=== PATIENT | female | born 1990 | race Caucasian/White ===

== ENCOUNTER 2017-01-24 09:46 | Outpatient (CLI) | payer BC, OTHER ==
--- NOTE | 2017-01-24 10:38 | DIAGNOSTIC IMAGING REPORT ---
PROCEDURE: US OB 1ST TRIMESTER W/TRANSVAG INDICATION: NO HEART TONES TECHNIQUE: Jefferson scale, color, and spectral Doppler transabdominal and endovaginal sonographic images of the first trimester gravid uterus were obtained. COMPARISON: None. FINDINGS: TRANSABDOMINAL SCANS: There is an intrauterine gestational sac with a pole. Closed cervix. TRANSVAGINAL SCANS: Yolk sac present. Bay-rump length measures 1.4 cm, 7 weeks 5 days. No cardiac activity detected. There is a subchorionic hemorrhage present. IMPRESSION: 1. demise 2. Results discussed with Dr. Conde
--- NOTE | 2017-01-24 10:38 | DIAGNOSTIC IMAGING REPORT ---
PROCEDURE: US OB 1ST TRIMESTER W/TRANSVAG INDICATION: NO HEART TONES TECHNIQUE: Jefferson scale, color, and spectral Doppler transabdominal and endovaginal sonographic images of the first trimester gravid uterus were obtained. COMPARISON: None. FINDINGS: TRANSABDOMINAL SCANS: There is an intrauterine gestational sac with a pole. Closed cervix. TRANSVAGINAL SCANS: Yolk sac present. [place]-rump length measures 1.4 cm, 7 weeks 5 days. No cardiac activity detected. There is a subchorionic hemorrhage present. IMPRESSION: 1. demise 2. Results discussed with Dr. Conde
== END 2017-01-24 23:00 ==
LOC: US SRH 09:46
DX: O02.1 Missed abortion (principal); Z3A.01 Less than 8 weeks gestation of pregnancy

== ENCOUNTER 2017-02-04 18:07 | Emergency (ER) | payer BC, OTHER ==
--- NOTE | 2017-02-04 19:54 | ED CLINICAL REPORT ---
Clinical Report - Physicians/Mid Levels [facility] [address] [place] [address] 02/04/2017 18:08 [id number] Time Seen: 18:13; upon arrival, initial patient contact, initial documentation, patient care assumed. Arrived- By private vehicle. Historian- patient. HISTORY OF PRESENT ILLNESS Chief Complaint: VAGINAL BLEEDING. This started today and still present. The symptoms are described as moderate. Modifying factors. Not worsened by anything. Not relieved by anything. The patient has had moderate, constant, crampy pelvic pain, described as "pain", with vaginal bleeding. She has had abnormal bleeding described as heavier than normal period and passing clots. She is not or postmenopausal. No control. No vaginal pain, low back pain, flank pain, vaginal discharge or pain with urination. No urinary frequency, urgency of urination or hematuria. Sexually active. Denies current . Not receiving care. Similar symptoms previously: None. Recent medical care: The patient was seen recently in a clinic. ( 7wks , went to dr on 01/24 for vag bleeding, dx with miscarriage, bleeding continued, so on 02/01 d&c was done, bleeding stopped after procedure, no f/u was told none was needed unless there were problems, bleeding started back up today). REVIEW OF SYSTEMS No vomiting, diarrhea, fever, difficulty breathing or chest pain. All systems otherwise negative, except as recorded above. PAST HISTORY See nurses notes. ( ADDITIONAL SURGERIES: Dilatation & Curettage. Endoscopy . [place] teeth. --18:26 Micaela Chen R.N.). SOCIAL HISTORY Never smoker. History of occasional drug use: marijuana. No alcohol use. No recent travel. Is a local resident. She lives with spouse. FAMILY HISTORY Negative. ADDITIONAL NOTES The nursing notes have been reviewed with agreement regarding the chief complaint, HPI, ROS, PMH and patient medications and allergies. PHYSICAL EXAM Vital Signs: 02/04/2017 18:17 BP: 115/67. HR: 84. RR: 20. O2 saturation: 99%. Temp: 98.1 F. Pain level now: 5/10. Have been reviewed as normal and appear to be correct. Appearance: Alert. Oriented X3. No acute distress. HEENT: Normal external inspection. ENT: Pharynx normal. Neck: Neck supple. CVS: Heart sounds normal. Respiratory: No respiratory distress. Breath sounds normal. Chest nontender. Abdomen: Soft and nontender. Bowel sounds normal. No organomegaly. No mass. Back: Normal external inspection. : External inspection abnormal. Speculum exam abnormal. Moderate vaginal bleeding, consisting of dark blood with clots, via the cervical os. No vaginal discharge. Cervical os closed. No tissue present. No cervicitis. No herpes-like lesions. Bimanual exam normal. Skin: Skin warm and dry. Normal skin color. No rash. Normal skin turgor. Extremities: Extremities nontender. No lower extremity edema. Neuro: Oriented X 3. Mood/affect normal. No motor deficit. No sensory deficit. LABS, X-RAYS, AND EKG Pelvic Sonogram: . verbal report given by tech Byron large uterine clot, no active bleeding. Study type: bedside. The study was discussed with the radiologist. Interpretation time: 19:25. Laboratory Tests: CBC w Diff: (ELIS: 02/04/2017 18:30) ( MsgRcvd 02/04/2017 18:53) Final results Test Result Flag Units (Reference) WHITE BLOOD COUNT 6.9 K/uL (4.5-11.5) RED BLOOD COUNT 4.33 M/uL (4.00-5.20) HEMOGLOBIN 12.7 gm/dL (12.0-16.0) HEMATOCRIT 36.8 % (36.0-46.0) MEAN CELL VOLUME 85 fL (80-100) MEAN CORPUSCULAR HGB 29 pg (26-34) MEAN CORPUSCULAR HGB CONC 34 g/dL (31-37) RED CELL DISTRIBUTION WIDTH 12.4 % (11.6-14.8) PLATELET COUNT 270 K/uL (150-400) NEUTROPHIL % 61.2 % (50-75) LYMPH % 26.1 % (25-40) MONO % 5.0 % (3-14) EOSINOPHIL % 7.1 H % (0-4) BASOPHIL % 0.6 % (0-2) CMP: (ELIS: 02/04/2017 18:30) ( MsgRcvd 02/04/2017 19:13) Final results Test Result Flag Units (Reference) GLUCOSE 98 mg/dL (70-110) BUN 13 mg/dL (7-18) CREATININE 0.7 mg/dL (0.6-1.3) Estimated GFR >60 mL/min Estimated GFR- >60 mL/min Note: Persistent reduction over 3 months in eGFR<60 mL/min/1.73 m2 defines CKD. Patients with eGFR values>=60 mL/min/1.73 m2 may also have CKD if evidence ofpersistent proteinuria. Additional information may be foundat [email or web address].org. SODIUM 143 mmol/L (136-145) POTASSIUM 3.6 mmol/L (3.5-5.1) CHLORIDE 103 mmol/L (98-107) CARBON DIOXIDE 28 mmol/L (21-32) CALCIUM 9.4 mg/dL (8.5-10.1) TOTAL PROTEIN 7.8 g/dL (6.4-8.2) ALBUMIN 4.1 g/dL (3.3-5.0) BILIRUBIN, TOTAL 0.6 mg/dL (0.0-1.0) ALKALINE PHOSPHATASE 69 U/L (46-116) AST (SGOT) 26 U/L (15-37) ALT (SGPT) 28 U/L (12-78) . PROGRESS AND PROCEDURES Patient and spouse counseled in person regarding the patient's stable condition, test results and diagnosis. 1930. Differential Diagnosis: I considered vaginitis, vaginal polyps, vaginal lesion, vaginal cancer, vulvar infection, ovarian cysts, polycystic disease of the ovaries, pelvic inflammatory disease, endometriosis, uterine fibroids, intrauterine , incomplete , threatened , retained products of , endometritis and trauma as a possible cause of vaginal bleeding in this patient. This is a partial list of diagnoses considered. Above considerations are based on history, physical exam, laboratory data and other information. Differential diagnosis was discussed with patient and patient's spouse. Disposition: Discharged home in good and improved condition (19:37). Condition: good and stable. CLINICAL IMPRESSION Moderate dysfunctional uterine bleeding. INSTRUCTIONS Do not work today, for two days. Warnings: GENERAL WARNINGS: Return or contact your physician immediately if your condition worsens or changes unexpectedly, if not improving as expected, or if other problems arise. Specifically return if problem worsens. Prescription Medications: Ultram 50 mg tablets: take 1-2 orally every 6 hours as needed for pain. Dispense twenty (20). No refills. Substitution is permissible. Follow-up: Follow up with a manager policy tomorrow even if well. Call for an appointment. Summary of care provided to patient and family. Understanding of the discharge instructions verbalized by patient. (Electronically signed by Tosiha Witt A.R.N.P. 02/04/2017 21:14)
--- NOTE | 2017-02-04 19:54 | ED NURSING NOTES ---
Clinical Report - Nurses [facility] [address], [place] [address] 02/04/2017 18:08 Patient: ASHLEY GRANDE TRIAGE Triage time 18:18. Acuity: LEVEL 3. Chief Complaint: VAGINAL BLEED and (Post miscarriag/D/C last friday, spotting till today, increased toady). Alert. No acute distress. --18:27 Micaela Chen R.N. 18:17 02/04/17. BP: 115/67. HR: 84. RR: 20. O2 saturation: 99%. Temp: 98.1 F. Pain level now: 04/02. --18:27 Micaela Chen R.N. 18:17 02/04/17. BP: 115/67. HR: 84. RR: 20. O2 saturation: 99%. Temp: 98.1 F. Pain level now: 04/02. --18:28 Micaela Chen R.N. Weight: 59.8 kg. Height/Length: 61 inches. BMI: 24.9. --18:27 Micaela Chen R.N. Medications Oxycodone 5 mg 1-2 q 4-6 hrs prn . --18:23 Micaela Chen R.N. Naproxyn 500mg q 4-6 hrs prn . --18:23 Micaela Chen R.N. Medication/allergy information source: the patient. --18:27 Micaela Chen R.N. Allergies No Known Drug Allergy. --18:23 Micaela Chen R.N. History Arrived by private vehicle. Historian: patient and family. Accompanied by family. No primary care physician. This started today. She has had abdominal pain. The pain is described as located in the lower abdomen. She has had spotting (Large clots). The spotting has required use of about 4 pads per day. Last oral intake by patient was today 5 hours ago. 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 PAST MEDICAL HX: Immunizations: up-to-date. 1. Para 0. Abortions 1. SOCIAL HX: Never smoker. History of drug use: marijuana. (2 months ago). No alcohol use. FALL RISK ASSESSMENT: Fall risk assessment completed. No fall risk identified. NUTRITIONAL RISK ASSESSMENT: The nutritional risk assessment revealed no deficiencies. FUNCTIONAL ASSESSMENT: Functional assessment: no impairments noted. LEARNING NEEDS ASSESSMENT: The learning needs assessment revealed no barriers. SKIN INTEGRITY ASSESSMENT: Skin integrity risk assessment completed. No skin integrity risk identified. --18:27 Micaela Chen R.N. ADDITIONAL SURGERIES: Dilatation & Curettage. Endoscopy . [place] teeth. --18:26 Micaela Chen R.N. Interventions ID band on patient. To room. --18:27 Micaela Chen R.N. PHYSICAL ASSESSMENT Ambulatory to room. Patient gowned. GENERAL / NEURO / PSYCH: Alert. Oriented X 4. Appears in pain and anxious. HEENT: Mucous membranes are pink. RESPIRATORY: Respirations not labored. CVS: Capillary refill less than 2 seconds. GI / : Abdominal tenderness in the lower abdomen. Moderate vaginal bleeding present, consisting of dark blood with clots (4 pads / day). SKIN: Skin is warm and dry. --18:29 Micaela Chen R.N. NURSING PROGRESS NOTES Patient gowned. Head of bed elevated. Two patient identifiers checked. Call light placed in reach. Side rails up x 2. Bed placed in lowest position. Brakes of bed on. Patient ready for evaluation. --18:29 Micaela Chen R.N. 18:28 02/04/2017 Site #1 started via IV in the right antecubital space with an 20g angiocath, with aseptic technique and good blood return; one attempt. Blood drawn: rainbow set. Labeled in the presence of the patient and sent to the lab. Saline lock flushed with 10 mL saline. --18:43 Micaela Chen R.N. 19:03 02/04/17. BP: 106/66. HR: 74. RR: 16. O2 saturation: 99%. Pain level now: 5/10. --19:04 Micaela Chen R.N. 19:04 02/04/17. ( US at the bedside.). --19:04 Micaela Chen R.N. 18:40. PELVIC EXAM: Pelvic exam performed by POLE SHAVER. Preparation: pelvic tray; patient placed in lithotomy position. Procedure: speculum exam. Status post-procedure: she was stable. Total time of assist / procedure: 15 minutes. --19:05 Micaela Chen R.N. EKG time: (1928). EKG was performed by a tech and shown to the ED physician. --19:47 Suma Arizmendi, AJ Tech1 19:54 02/04/2017 Toradol IVP 30 mg given over 1 minute(s) via site #1. Allergies verified and confirmed 5 rights. IV patency established. IV site checked: no pain, redness, or swelling. IV flushed thoroughly pre- and post-medication administration. IVP given by RN. --19:54 Micaela Chen R.N. 20:01 02/04/2017 Site #1 removed upon discharge. Catheter intact. Bandaid applied. --20:13 Micaela Chen R.N. DISPOSITION / DISCHARGE 20:01. Condition at departure: improved. No learning barriers present. Discharge instructions provided and reviewed with the patient and spouse. Reviewed medication(s) side effects, precautions, dosing and course information. Prescription(s) given to the patient. Reviewed referral to a roof technician. Patient and spouse verbalized understanding. Written instructions provided in Colombian. The patient was discharged home and accompanied by spouse. She left the Emergency Department ambulatory and via private vehicle. Spouse driving. Medication list reviewed and validated. --20:12 Micaela Chen R.N. 20:00 02/04/17. BP: 110/78. HR: 74. RR: 18. O2 saturation: 99% on room air. Temp: deferred. Pain level now: 01/03. 19:02/04/17. BP: 106/66. HR: 74. RR: 16. O2 saturation: 99%. Pain level now: 04/02. 18:17 02/04/17. BP: 115/67. HR: 84. RR: 20. O2 saturation: 99%. Temp: 98.1 F. Pain level now: 04/02. --20:12 Micaela Chen R.N. Locked/Released at 02/04/2017 20:14 by Micaela Chen R.N.
--- NOTE | 2017-02-04 19:54 | ED ORDER SUMMARY ---
..... Patient: ASHLEY GRANDE OrderSheet [facility] VisitID: [id number] [address] [place] [address] 27y, F Registration Date/Time: 02/04/2017 ORDER SHEET Weight: 59.8 kg Allergies: No Known Drug Allergy GENERAL ORDERS: CBC w Diff Urgent (18:42 02/04/2017 SRoberts R.N. per protocol) (18:43 SRoberts R.N.) CMP Urgent (18:42 02/04/2017 SRoberts R.N. per protocol) (18:43 SRoberts R.N.) US Pelvic Complete w Transvag Urgent (18:53 02/04/2017 HBivens A.R.N.P.) (Ack 18:54 LNations ER Tech1) (19:47 MCampbell) UA-Culture if indicated Urgent (19:14 02/04/2017 HBivens A.R.N.P.) (Ack 19:22 SRedmond) MEDICATION ORDERS: IV FLUIDS: IV Saline Lock (18:42 02/04/2017 SRoberts R.N. per protocol) (18:43 SRoberts R.N.) Toradol IV 30 mg (NOW) (19:37 02/04/2017 HBivens A.R.N.P.) (Ack 19:48 SRoberts R.N.) (19:54 SRoberts R.N.) ORDER SHEET NOTES: [Electronically signed by Micaela Chen R.N. (20:02/04/2017)] [Electronically signed by Toshia Witt A.R.N.P. (21:14 02/04/2017)] [Electronically locked/signed by Micaela Chen R.N. (20:14 02/04/2017)]
--- NOTE | 2017-02-04 19:54 | ED ORDER SUMMARY ---
..... Patient: AHSLEY GRANDE OrderSheet [facility] VisitID: [id number] [address] [place] [address] 27y, F Registration Date/Time: 02/04/2017 ORDER SHEET Weight: 59.8 kg Allergies: No Known Drug Allergy GENERAL ORDERS: CBC w Diff Urgent (18:42 02/04/2017 SRoberts R.N. per protocol) (18:43 SRoberts R.N.) CMP Urgent (18:42 02/04/2017 SRoberts R.N. per protocol) (18:43 SRoberts R.N.) US Pelvic Complete w Transvag Urgent (18:53 02/04/2017 HBivens A.R.N.P.) (Ack 18:54 LNations ER Tech1) (19:47 MCampbell) UA-Culture if indicated Urgent (19:14 02/04/2017 HBivens A.R.N.P.) (Ack 19:22 SRedmond) MEDICATION ORDERS: IV FLUIDS: IV Saline Lock (18:42 02/04/2017 SRoberts R.N. per protocol) (18:43 SRoberts R.N.) Toradol IV 30 mg (NOW) (19:37 02/04/2017 HBivens A.R.N.P.) (Ack 19:48 SRoberts R.N.) (19:54 SRoberts R.N.) ORDER SHEET NOTES: [Electronically signed by Micaela Chen R.N. (20:02/04/2017)] [Electronically signed by Toshia Witt A.R.N.P. (21:14 02/04/2017)] [Electronically locked/signed by Micaela Chen R.N. (20:14 02/04/2017)]
--- NOTE | 2017-02-04 19:54 | ED NURSING NOTES ---
Clinical Report - Nurses [facility] [address], [place] [address] 02/04/2017 18:08 Patient: ASHLEY GRANDE TRIAGE Triage time 18:18. Acuity: LEVEL 3. Chief Complaint: VAGINAL BLEED and (Post miscarriag/D/C last friday, spotting till today, increased toady). Alert. No acute distress. --18:27 Micaela Chen R.N. 18:17 02/04/17. BP: 115/67. HR: 84. RR: 20. O2 saturation: 99%. Temp: 98.1 F. Pain level now: 04/02. --18:27 Micaela Chen R.N. 18:17 02/04/17. BP: 115/67. HR: 84. RR: 20. O2 saturation: 99%. Temp: 98.1 F. Pain level now: 04/02. --18:28 Micaela Chen R.N. Weight: 59.8 kg. Height/Length: 61 inches. BMI: 24.9. --18:27 Micaela Chen R.N. Medications Oxycodone 5 mg 1-2 q 4-6 hrs prn . --18:23 Micaela Chen R.N. Naproxyn 500mg q 4-6 hrs prn . --18:23 Micaela Chen R.N. Medication/allergy information source: the patient. --18:27 Micaela Chen R.N. Allergies No Known Drug Allergy. --18:23 Micaela Chen R.N. History Arrived by private vehicle. Historian: patient and family. Accompanied by family. No primary care physician. This started today. She has had abdominal pain. The pain is described as located in the lower abdomen. She has had spotting (Large clots). The spotting has required use of about 4 pads per day. Last oral intake by patient was today 5 hours ago. 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 PAST MEDICAL HX: Immunizations: up-to-date. 1. Para 0. Abortions 1. SOCIAL HX: Never smoker. History of drug use: marijuana. (2 months ago). No alcohol use. FALL RISK ASSESSMENT: Fall risk assessment completed. No fall risk identified. NUTRITIONAL RISK ASSESSMENT: The nutritional risk assessment revealed no deficiencies. FUNCTIONAL ASSESSMENT: Functional assessment: no impairments noted. LEARNING NEEDS ASSESSMENT: The learning needs assessment revealed no barriers. SKIN INTEGRITY ASSESSMENT: Skin integrity risk assessment completed. No skin integrity risk identified. --18:27 Micaela Chen R.N. ADDITIONAL SURGERIES: Dilatation & Curettage. Endoscopy . [place] teeth. --18:26 Micaela Chen R.N. Interventions ID band on patient. To room. --18:27 Micaela Chen R.N. PHYSICAL ASSESSMENT Ambulatory to room. Patient gowned. GENERAL / NEURO / PSYCH: Alert. Oriented X 4. Appears in pain and anxious. HEENT: Mucous membranes are pink. RESPIRATORY: Respirations not labored. CVS: Capillary refill less than 2 seconds. GI / : Abdominal tenderness in the lower abdomen. Moderate vaginal bleeding present, consisting of dark blood with clots (4 pads / day). SKIN: Skin is warm and dry. --18:29 Micaela Chen R.N. NURSING PROGRESS NOTES Patient gowned. Head of bed elevated. Two patient identifiers checked. Call light placed in reach. Side rails up x 2. Bed placed in lowest position. Brakes of bed on. Patient ready for evaluation. --18:29 Micaela Chen R.N. 18:28 02/04/2017 Site #1 started via IV in the right antecubital space with an 20g angiocath, with aseptic technique and good blood return; one attempt. Blood drawn: rainbow set. Labeled in the presence of the patient and sent to the lab. Saline lock flushed with 10 mL saline. --18:43 Micaela Chen R.N. 19:03 02/04/17. BP: 106/66. HR: 74. RR: 16. O2 saturation: 99%. Pain level now: 5/10. --19:04 Micaela Chen R.N. 19:04 02/04/17. ( US at the bedside.). --19:04 Micaela Chen R.N. 18:40. PELVIC EXAM: Pelvic exam performed by PRODUCTION EXPEDITER. Preparation: pelvic tray; patient placed in lithotomy position. Procedure: speculum exam. Status post-procedure: she was stable. Total time of assist / procedure: 15 minutes. --19:05 Micaela Chen R.N. EKG time: (1928). EKG was performed by a tech and shown to the ED physician. --19:47 Suma Arizmendi, AJ Tech1 19:54 02/04/2017 Toradol IVP 30 mg given over 1 minute(s) via site #1. Allergies verified and confirmed 5 rights. IV patency established. IV site checked: no pain, redness, or swelling. IV flushed thoroughly pre- and post-medication administration. IVP given by RN. --19:54 Micaela Chen R.N. 20:01 02/04/2017 Site #1 removed upon discharge. Catheter intact. Bandaid applied. --20:13 Micaela Chen R.N. DISPOSITION / DISCHARGE 20:01. Condition at departure: improved. No learning barriers present. Discharge instructions provided and reviewed with the patient and spouse. Reviewed medication(s) side effects, precautions, dosing and course information. Prescription(s) given to the patient. Reviewed referral to a patient accounts manager. Patient and spouse verbalized understanding. Written instructions provided in Panamanian. The patient was discharged home and accompanied by spouse. She left the Emergency Department ambulatory and via private vehicle. Spouse driving. Medication list reviewed and validated. --20:12 Micaela Chen R.N. 20:00 02/04/17. BP: 110/78. HR: 74. RR: 18. O2 saturation: 99% on room air. Temp: deferred. Pain level now: 01/03. 19:02/04/17. BP: 106/66. HR: 74. RR: 16. O2 saturation: 99%. Pain level now: 04/02. 18:17 02/04/17. BP: 115/67. HR: 84. RR: 20. O2 saturation: 99%. Temp: 98.1 F. Pain level now: 04/02. --20:12 Micaela Chen R.N. Locked/Released at 02/04/2017 20:14 by Micaela Chen R.N.
--- NOTE | 2017-02-04 20:04 | DIAGNOSTIC IMAGING REPORT ---
PROCEDURE: US COMPLETE PELVIC W/TRANSVAG TECHNIQUE: Transabdominal and endovaginal cali scale and color Doppler sonographic images of the female pelvis were obtained. (Aircraft Motor Mechanic D RT). COMPARISON: Comparison is made to obstetric ultrasound 01/24/2017. FINDINGS: TRANSABDOMINAL SCANS: Uterus is mildly enlarged (8.3 x 7.3 x 4.6 cm) with a large amount of hemorrhagic material in the endometrial canal. TRANSVAGINAL SCANS: Marked increase endometrial thickening with heterogeneous proteinaceous material in the endometrial canal (maximum thickness 4 cm). Ovaries are not visualized. IMPRESSION: 1. Marked endometrial thickening with complex proteinaceous material (e.g., hemorrhage) within the endometrial canal. 2. Findings discussed with AUSTIN Pickering.
--- NOTE | 2017-02-04 20:04 | DIAGNOSTIC IMAGING REPORT ---
PROCEDURE: US COMPLETE PELVIC W/TRANSVAG TECHNIQUE: Transabdominal and endovaginal cali scale and color Doppler sonographic images of the female pelvis were obtained. (Lens Examiner D RT). COMPARISON: Comparison is made to obstetric ultrasound 01/24/2017. FINDINGS: TRANSABDOMINAL SCANS: Uterus is mildly enlarged (8.3 x 7.3 x 4.6 cm) with a large amount of hemorrhagic material in the endometrial canal. TRANSVAGINAL SCANS: Marked increase endometrial thickening with heterogeneous proteinaceous material in the endometrial canal (maximum thickness 4 cm). Ovaries are not visualized. IMPRESSION: 1. Marked endometrial thickening with complex proteinaceous material (e.g., hemorrhage) within the endometrial canal. 2. Findings discussed with AUSTIN Pickering.
--- NOTE | 2017-02-04 21:14 | ED DISCHARGE INSTRUCTIONS ---
Patient: ASHLEY GRANDE General Instructions [facility] VisitID: [id number] [place] [address] 27y, F Registration Date/Time: 02/04/2017 Moderate dysfunctional uterine bleeding. INSTRUCTIONS Do not work today, for two days. Warnings: GENERAL WARNINGS: Return or contact your physician immediately if your condition worsens or changes unexpectedly, if not improving as expected, or if other problems arise. Specifically return if problem worsens. Prescription Medications: Ultram 50 mg tablets: take 1-2 orally every 6 hours as needed for pain. Dispense twenty (20). No refills. Substitution is permissible. Follow-up: Follow up with a workers compensation claims specialist tomorrow even if well. Call for an appointment. Summary of care provided to patient and family. Understanding of the discharge instructions verbalized by patient. ADDITIONAL INFORMATION Irregular Vaginal Bleeding This is a condition in which bleeding occurs at unexpected times of the month. The bleeding may be heavier or filling winder than usual. Heavy bleeding may lead to anemia. If severe enough, anemia may cause you to look pale and feel weak or fatigued. You might have shortness of breath even with little exertion. The female hormones produced in your body every month may be out of balance. This imbalance leads to bleeding. Causes could include an ovarian cyst, emotional stress, pelvic infection. Failure to ovulate during your last cycle may also cause this problem. Home Care: If bleeding is heavy, rest and avoid heavy exertion. You may use acetaminophen (Tylenol) or ibuprofen (Motrin, Advil) to control pain, unless another pain medicine was prescribed. [NOTE: If you have chronic liver or kidney disease or ever had a stomach ulcer or GI bleeding, talk with your doctor before using these medicines.] Iron supplements may be prescribed for anemia. It takes about 4-6 weeks for the iron to correct the anemia. Take the medicine as directed. See your doctor for a repeat blood test after you finish the iron treatment. If hormones were prescribed to control your bleeding, take them exactly as directed. If you were prescribed a medicine called Provera (medroxyprogesterone), the bleeding should stop while you are taking it. Another period will start a few days after you finish the medicine. Follow Up with your doctor, or as advised, within the next 1-2 days if heavy bleeding continues. Otherwise, follow up within the next 1-2 weeks. Get Prompt Medical Attention if any of the following occur: Bleeding becomes heavy (soaking one pad an hour for three hours) Fever of 100.4F (38C) or higher, or as directed by your healthcare provider Increase in abdominal pain Weakness, dizziness or fainting Tramadol Hydrochloride Oral tablet What is this medicine? TRAMADOL (TRA ma dole) is a pain reliever. It is used to treat moderate to severe pain in adults. How should I use this medicine? Take this medicine by mouth with a full glass of water. Follow the directions on the prescription label. If the medicine upsets your stomach, take it with food or milk. Do not take more medicine than you are told to take. Talk to your sprinkler repair technician regarding the use of this medicine in children. Special care may be needed. What side effects may I notice from receiving this medicine? Side effects that you should report to your doctor or health caretaker as soon as possible: allergic reactions like skin rash, itching or hives, swelling of the face, lips, or tongue breathing difficulties, wheezing confusion itching light headedness or fainting spells redness, blistering, peeling or loosening of the skin, including inside the mouth seizures Side effects that usually do not require medical attention (report to your doctor or health caretaker if they continue or are bothersome): constipation dizziness drowsiness headache nausea, vomiting What may interact with this medicine? Do not take this medicine with any of the following medications: MAOIs like Carbex, Eldepryl, Marplan, Nardil, and Parnate This medicine may also interact with the following medications: alcohol or medicines that contain alcohol antihistamines benzodiazepines bupropion carbamazepine or oxcarbazepine clozapine cyclobenzaprine digoxin furazolidone linezolid medicines for depression, anxiety, or psychotic disturbances medicines for migraine headache like almotriptan, eletriptan, frovatriptan, naratriptan, rizatriptan, sumatriptan, zolmitriptan medicines for pain like pentazocine, buprenorphine, butorphanol, meperidine, nalbuphine, and propoxyphene medicines for sleep muscle relaxants naltrexone phenobarbital phenothiazines like perphenazine, thioridazine, chlorpromazine, mesoridazine, fluphenazine, prochlorperazine, promazine, and trifluoperazine procarbazine warfarin What if I miss a dose? If you miss a dose, take it as soon as you can. If it is almost time for your next dose, take only that dose. Do not take double or extra doses. Where should I keep my medicine? Keep out of the reach of children. Store at room temperature between 15 and 30 degrees C (59 and 86 degrees F). Keep container tightly closed. Throw away any unused medicine after the expiration date. What should I tell my health care provider before I take this medicine? They need to know if you have any of these conditions: brain tumor depression drug abuse or addiction head injury if you frequently drink alcohol containing drinks kidney disease or trouble passing urine liver disease lung disease, asthma, or breathing problems seizures or epilepsy suicidal thoughts, plans, or attempt; a previous suicide attempt by you or a family member an unusual or allergic reaction to tramadol, codeine, other medicines, foods, dyes, or preservatives or trying to get breast-feeding What should I watch for while using this medicine? Tell your doctor or health caretaker if your pain does not go away, if it gets worse, or if you have new or a different type of pain. You may develop tolerance to the medicine. Tolerance means that you will need a higher dose of the medicine for pain relief. Tolerance is normal and is expected if you take this medicine for a long time. Do not suddenly stop taking your medicine because you may develop a severe reaction. Your body becomes used to the medicine. This does NOT mean you are addicted. Addiction is a behavior related to getting and using a drug for a non-medical reason. If you have pain, you have a medical reason to take pain medicine. Your doctor will tell you how much medicine to take. If your doctor wants you to stop the medicine, the dose will be slowly lowered over time to avoid any side effects. You may get drowsy or dizzy. Do not drive, use machinery, or do anything that needs mental alertness until you know how this medicine affects you. Do not stand or sit up quickly, especially if you are an older patient. This reduces the risk of dizzy or fainting spells. Alcohol can increase or decrease the effects of this medicine. Avoid alcoholic drinks. You may have constipation. Try to have a bowel movement at least every 2 to 3 days. If you do not have a bowel movement for 3 days, call your doctor or health caretaker. Your mouth may get dry. Chewing sugarless gum or sucking hard candy, and drinking plenty of water may help. Contact your doctor if the problem does not go away or is severe. You have been given the following additional information: Dysfunctional Uterine Bleeding Tramadol Hydrochloride Oral tablet Do not work today, for two days. (Electronically signed by Toshia Witt A.R.N.P. 02/04/2017 21:14)
--- NOTE | 2017-02-04 21:14 | ED DISCHARGE INSTRUCTIONS ---
Patient: ASHLEY GRANDE General Instructions [facility] VisitID: [id number] [place] [address] 27y, F Registration Date/Time: 02/04/2017 Moderate dysfunctional uterine bleeding. INSTRUCTIONS Do not work today, for two days. Warnings: GENERAL WARNINGS: Return or contact your physician immediately if your condition worsens or changes unexpectedly, if not improving as expected, or if other problems arise. Specifically return if problem worsens. Prescription Medications: Ultram 50 mg tablets: take 1-2 orally every 6 hours as needed for pain. Dispense twenty (20). No refills. Substitution is permissible. Follow-up: Follow up with a litharge mill operator tomorrow even if well. Call for an appointment. Summary of care provided to patient and family. Understanding of the discharge instructions verbalized by patient. ADDITIONAL INFORMATION Irregular Vaginal Bleeding This is a condition in which bleeding occurs at unexpected times of the month. The bleeding may be heavier or weir fisher than usual. Heavy bleeding may lead to anemia. If severe enough, anemia may cause you to look pale and feel weak or fatigued. You might have shortness of breath even with little exertion. The female hormones produced in your body every month may be out of balance. This imbalance leads to bleeding. Causes could include an ovarian cyst, emotional stress, pelvic infection. Failure to ovulate during your last cycle may also cause this problem. Home Care: If bleeding is heavy, rest and avoid heavy exertion. You may use acetaminophen (Tylenol) or ibuprofen (Motrin, Advil) to control pain, unless another pain medicine was prescribed. [NOTE: If you have chronic liver or kidney disease or ever had a stomach ulcer or GI bleeding, talk with your doctor before using these medicines.] Iron supplements may be prescribed for anemia. It takes about 4-6 weeks for the iron to correct the anemia. Take the medicine as directed. See your doctor for a repeat blood test after you finish the iron treatment. If hormones were prescribed to control your bleeding, take them exactly as directed. If you were prescribed a medicine called Provera (medroxyprogesterone), the bleeding should stop while you are taking it. Another period will start a few days after you finish the medicine. Follow Up with your doctor, or as advised, within the next 1-2 days if heavy bleeding continues. Otherwise, follow up within the next 1-2 weeks. Get Prompt Medical Attention if any of the following occur: Bleeding becomes heavy (soaking one pad an hour for three hours) Fever of 100.4F (38C) or higher, or as directed by your healthcare provider Increase in abdominal pain Weakness, dizziness or fainting Tramadol Hydrochloride Oral tablet What is this medicine? TRAMADOL (TRA ma dole) is a pain reliever. It is used to treat moderate to severe pain in adults. How should I use this medicine? Take this medicine by mouth with a full glass of water. Follow the directions on the prescription label. If the medicine upsets your stomach, take it with food or milk. Do not take more medicine than you are told to take. Talk to your software quality analyst regarding the use of this medicine in children. Special care may be needed. What side effects may I notice from receiving this medicine? Side effects that you should report to your doctor or health pet care technician as soon as possible: allergic reactions like skin rash, itching or hives, swelling of the face, lips, or tongue breathing difficulties, wheezing confusion itching light headedness or fainting spells redness, blistering, peeling or loosening of the skin, including inside the mouth seizures Side effects that usually do not require medical attention (report to your doctor or health pet care technician if they continue or are bothersome): constipation dizziness drowsiness headache nausea, vomiting What may interact with this medicine? Do not take this medicine with any of the following medications: MAOIs like Carbex, Eldepryl, Marplan, Nardil, and Parnate This medicine may also interact with the following medications: alcohol or medicines that contain alcohol antihistamines benzodiazepines bupropion carbamazepine or oxcarbazepine clozapine cyclobenzaprine digoxin furazolidone linezolid medicines for depression, anxiety, or psychotic disturbances medicines for migraine headache like almotriptan, eletriptan, frovatriptan, naratriptan, rizatriptan, sumatriptan, zolmitriptan medicines for pain like pentazocine, buprenorphine, butorphanol, meperidine, nalbuphine, and propoxyphene medicines for sleep muscle relaxants naltrexone phenobarbital phenothiazines like perphenazine, thioridazine, chlorpromazine, mesoridazine, fluphenazine, prochlorperazine, promazine, and trifluoperazine procarbazine warfarin What if I miss a dose? If you miss a dose, take it as soon as you can. If it is almost time for your next dose, take only that dose. Do not take double or extra doses. Where should I keep my medicine? Keep out of the reach of children. Store at room temperature between 15 and 30 degrees C (59 and 86 degrees F). Keep container tightly closed. Throw away any unused medicine after the expiration date. What should I tell my health care provider before I take this medicine? They need to know if you have any of these conditions: brain tumor depression drug abuse or addiction head injury if you frequently drink alcohol containing drinks kidney disease or trouble passing urine liver disease lung disease, asthma, or breathing problems seizures or epilepsy suicidal thoughts, plans, or attempt; a previous suicide attempt by you or a family member an unusual or allergic reaction to tramadol, codeine, other medicines, foods, dyes, or preservatives or trying to get breast-feeding What should I watch for while using this medicine? Tell your doctor or health pet care technician if your pain does not go away, if it gets worse, or if you have new or a different type of pain. You may develop tolerance to the medicine. Tolerance means that you will need a higher dose of the medicine for pain relief. Tolerance is normal and is expected if you take this medicine for a long time. Do not suddenly stop taking your medicine because you may develop a severe reaction. Your body becomes used to the medicine. This does NOT mean you are addicted. Addiction is a behavior related to getting and using a drug for a non-medical reason. If you have pain, you have a medical reason to take pain medicine. Your doctor will tell you how much medicine to take. If your doctor wants you to stop the medicine, the dose will be slowly lowered over time to avoid any side effects. You may get drowsy or dizzy. Do not drive, use machinery, or do anything that needs mental alertness until you know how this medicine affects you. Do not stand or sit up quickly, especially if you are an older patient. This reduces the risk of dizzy or fainting spells. Alcohol can increase or decrease the effects of this medicine. Avoid alcoholic drinks. You may have constipation. Try to have a bowel movement at least every 2 to 3 days. If you do not have a bowel movement for 3 days, call your doctor or health pet care technician. Your mouth may get dry. Chewing sugarless gum or sucking hard candy, and drinking plenty of water may help. Contact your doctor if the problem does not go away or is severe. You have been given the following additional information: Dysfunctional Uterine Bleeding Tramadol Hydrochloride Oral tablet Do not work today, for two days. (Electronically signed by Toshia Witt A.R.N.P. 02/04/2017 21:14)
--- NOTE | 2017-02-04 21:15 | ED MAR SUMMARY ---
..... Medication Administration Record [facility] [address] [place] [address] Patient: ASHLEY GRANDE Visit ID: [id number] 27y, F Weight: 59.8 kg Height/Length: 61 in BMI: 24.9 ALLERGIES: No Known Drug Allergy Given 19:54 02/04/2017 Micaela Chen R.N. Medication Administered: TORADOL [IVP], Dose: 30 mg IVP over 1 minute(s), Site: #1 right AC. Medication Ordered: Toradol IV 30 mg (NOW).
--- NOTE | 2017-02-04 21:15 | ED MAR SUMMARY ---
..... Medication Administration Record [facility] [address] [place] [address] Patient: ASHLEY GRANDE Visit ID: [id number] 27y, F Weight: 59.8 kg Height/Length: 61 in BMI: 24.9 ALLERGIES: No Known Drug Allergy Given 19:54 02/04/2017 Micaela Chen R.N. Medication Administered: TORADOL [IVP], Dose: 30 mg IVP over 1 minute(s), Site: #1 right AC. Medication Ordered: Toradol IV 30 mg (NOW).
--- NOTE | 2017-02-04 21:15 | ED MED RECONCILIATION SUMMARY ---
Patient: ASHLEY GRANDE Medication Reconciliation Report [facility] VisitID: [id number] [address] [place] [address] 27y, F Registration Date/Time: 02/04/2017 Weight: 59.8 kg Height/Length: 61 in. BMI: 24.9 ALLERGIES: No Known Drug Allergy The patient's Home Medications are listed below: THE FOLLOWING MEDICATIONS NEED TO BE RECONCILED: Naproxyn 500mg q 4-6 hrs prn Oxycodone 5 mg 1-2 q 4-6 hrs prn The source(s) of the original Home Medication information: patient The following Medications were given to the patient in the Emergency Department: Toradol [IVP] IVP 30 mg, administered: 02/04/2017 7:54:00 PM The following Medications were prescribed to the patient: Ultram 50 mg tablets: take 1-2 orally every 6 hours as needed for pain. Dispense twenty (20). No refills. Substitution is permissible. -- Toshia Witt A.R.N.P.
--- NOTE | 2017-02-04 21:15 | ED MED RECONCILIATION SUMMARY ---
Patient: ASHLEY GRANDE Medication Reconciliation Report [facility] VisitID: [id number] [address] [place] [address] 27y, F Registration Date/Time: 02/04/2017 Weight: 59.8 kg Height/Length: 61 in. BMI: 24.9 ALLERGIES: No Known Drug Allergy The patient's Home Medications are listed below: THE FOLLOWING MEDICATIONS NEED TO BE RECONCILED: Naproxyn 500mg q 4-6 hrs prn Oxycodone 5 mg 1-2 q 4-6 hrs prn The source(s) of the original Home Medication information: patient The following Medications were given to the patient in the Emergency Department: Toradol [IVP] IVP 30 mg, administered: 02/04/2017 7:54:00 PM The following Medications were prescribed to the patient: Ultram 50 mg tablets: take 1-2 orally every 6 hours as needed for pain. Dispense twenty (20). No refills. Substitution is permissible. -- Toshia Witt A.R.N.P.
== END 2017-02-04 20:00 | disposition home or self-care (01) ==
LOC: ED SRH 18:07
DX: N93.8 Other specified abnormal uterine and vaginal bleeding (principal)
CPT/HCPCS: 90004; 90100; 95059